=== PATIENT | female | born 1975 | race Caucasian/White ===

== ENCOUNTER → 2016-09-26 | Outpatient (CLI) | payer OTHER ==
--- NOTE | 2016-09-27 11:13 | MM ---
Reason for exam: screening (asymptomatic). Last mammogram was performed 1 year and 1 month ago. Physical Findings: A clinical breast exam by your physician is recommended on an annual basis and results should be correlated with mammographic findings. MG Screening Mammo w CAD Bilateral CC and MLO view(s) were taken. Prior study comparison: September 09, 2015, mammogram, performed at [facility]. August 25, 2014, mammogram, performed at [facility]. No significant changes when compared with prior studies. ASSESSMENT: Benign, BI-RAD 2 RECOMMENDATION: Routine screening mammogram of both breasts in 1 year.
== END | disposition home or self-care (01) ==
LOC: RADMAMWWP 13:56
PROVIDERS: ATTEND Family Medicine
DX: Z12.31 Encounter for screening mammogram for malignant neoplasm of breast (principal)

== ENCOUNTER → 2018-04-16 | Outpatient (CLI) | payer OTHER ==
--- NOTE | 2018-04-19 12:25 | MM ---
Reason for exam: screening (asymptomatic). Last mammogram was performed 1 year and 7 months ago. MG Screening Mammo w CAD Bilateral CC and MLO view(s) were taken. Prior study comparison: September 26, 2016, bilateral MG screening mammo w CAD. September 09, 2015, mammogram, performed at [facility]. The breast tissue is heterogeneously dense. This may lower the sensitivity of mammography. Punctate regional calcifications in both breast. Greater degree of subareolar fullness in the left breast. ASSESSMENT: Incomplete: need additional imaging evaluation, BI-RAD 0 RECOMMENDATION: Ultrasound of the left breast.
== END | disposition home or self-care (01) ==
LOC: RADMAMWWP 14:52
DX: Z12.31 Encounter for screening mammogram for malignant neoplasm of breast (principal)
CPT/HCPCS: 77067

== ENCOUNTER → 2018-05-01 | Outpatient (CLI) | payer OTHER ==
--- NOTE | 2018-05-05 12:17 | USB ---
Reason for exam: additional evaluation requested from abnormal screening. Physical Findings: Nurse did not find any significant physical abnormalities on exam. US Breast Workup Limited LT Left limited breast ultrasound including focal area of concern, retroareolar and axilla demonstrates a 2.0 x 1.6 x 0.7 cm oval well circumscribed cystic lesion at 2 o'clock, a 1.0 x 0.9 x 0.6 cm oval well circumscribed cystic lesion post nipple and a benign left axillary lymph node. The lesions at 2 and behind the nipple appear as fibrocystic changes. These results were verbally communicated with the patient and result sheet given to the patient on 05/01/18. ASSESSMENT: Benign, BI-RAD 2 RECOMMENDATION: Return to routine screening mammogram schedule for both breasts.
== END | disposition home or self-care (01) ==
LOC: RADUSWWP 07:45
PROVIDERS: ATTEND Family Medicine
DX: R92.8 Other abnormal and inconclusive findings on diagnostic imaging of breast (principal)

== ENCOUNTER 2022-03-12 01:47 | Emergency (ER) | payer OTHER ==
[2022-03-12 01:57] VITALS: TEMP 98.9
--- NOTE | 2022-03-12 02:24 | ED ---
URI HPI - General Chief Complaint: Upper Respiratory Infection Stated Complaint: JIMMY, chest pain Time Seen by Provider: 03/12/22 02:22 Source: patient, RN notes reviewed, old records reviewed Mode of arrival: ambulatory Limitations: no limitations - History of Present Illness Initial Comments: This is a 38-year-old female DF for evaluation patient Dese for evaluation regarding shortness of breath cough congestion fever. Not feeling well. No travel history no known specific sick contacts. Patient concern for coronavirus of flu. Maybe a little chest pain nothing significant difficulty taking a deep breath patient is a smoker, no significant shortness of breath MD Complaint: cough -: days(s) Severity: moderate Severity scale (1-10): 4 Consistency: constant Improves With: nothing Worsens With: nothing Associated Symptoms: fever, chills, myalgias, cough, chest pain, shortness of breath - Related Data Previous Rx's Medication Instructions Recorded Azithromycin [Zithromax] 500 mg PO DAILY #5 tab 03/12/22 predniSONE 50 mg PO DAILY #5 tab 03/12/22 Allergies Allergy/AdvReac Type Severity Reaction Status Date / Time acetaminophen [From Vicodin] Allergy Anaphylaxis Verified 03/12/22 01:58 aspirin Allergy Anaphylaxis Verified 03/12/22 01:58 diazepam [From Valium] Allergy Anaphylaxis Verified 03/12/22 01:58 hydrocodone [From Vicodin] Allergy Anaphylaxis Verified 03/12/22 01:58 ibuprofen [From Motrin] Allergy Anaphylaxis Verified 03/12/22 01:58 Review of Systems ROS Statement: Those systems with pertinent positive or pertinent negative responses have been documented in the HPI. ROS Other: All systems not noted in ROS Statement are negative. Past Medical History Past Medical History: No Reported History History of Any Multi-Drug Resistant Organisms: None Reported Past Surgical History: No Surgical Hx Reported Past Psychological History: No Psychological Hx Reported Smoking Status: Current every day smoker Past Alcohol Use History: Occasional Past Drug Use History: None Reported General Exam Limitations: no limitations General appearance: alert, in no apparent distress Head exam: Present: atraumatic, normocephalic, normal inspection Eye exam: Present: normal appearance, PERRL, EOMI. Absent: scleral icterus, conjunctival injection, periorbital swelling ENT exam: Present: normal exam, mucous membranes moist Neck exam: Present: normal inspection. Absent: tenderness, meningismus, lymphadenopathy Respiratory exam: Present: normal lung sounds bilaterally. Absent: respiratory distress, wheezes, rales, rhonchi, stridor Cardiovascular Exam: Present: normal rhythm, tachycardia, normal heart sounds. Absent: systolic murmur, diastolic murmur, rubs, gallop, clicks GI/Abdominal exam: Present: soft, normal bowel sounds. Absent: distended, tenderness, guarding, rebound, rigid Extremities exam: Present: normal inspection, full ROM, normal capillary refill. Absent: tenderness, pedal edema, joint swelling, calf tenderness Back exam: Present: normal inspection Neurological exam: Present: alert, oriented X3, CN II-XII intact Psychiatric exam: Present: normal affect, normal mood Skin exam: Present: warm, dry, intact, normal color. Absent: rash Course Vital Signs 03/12/22 01:55 Temperature 98.9 F Pulse Rate 105 H Respiratory 20 Rate Blood Pressure 149/77 O2 Sat by Pulse 95 Oximetry - Reevaluation(s) Reevaluation #1: 03/12/22 03:25 Medical record is reviewed Reevaluation #2: 03/12/22 03:25 Patient symptoms are improved Reevaluation #3: 03/12/22 03:25 Patient informed results and questions answered Medical Decision Making - Medical Decision Making 46 male cough congestion runny nose coming in for shortness of breath. Vital testing is negative x-rays negative patient can be discharged home - Lab Data Lab Results 03/12/22 Range/Units 01:59 Influenza Type A (PCR) Not Detected (Not Detectd) Influenza Type B (PCR) Not Detected (Not Detectd) RSV (PCR) Not Detected (Not Detectd) SARS-CoV-2 (PCR) Not Detected (Not Detectd) - Radiology Data Radiology results: report reviewed (Chest x-rays negative for acute disease), image reviewed Disposition Clinical Impression: Bronchitis, Acute upper respiratory infection, Viral infection, Fever Disposition: HOME SELF-CARE Condition: Good Instructions (If sedation given, give patient instructions): Upper Respiratory Infection (ED) Prescriptions: predniSONE 50 mg PO DAILY #5 tab Azithromycin [Zithromax] 500 mg PO DAILY #5 tab Is patient prescribed a controlled substance at d/c from ED?: No Referrals: None,Stated [REFERRING] - 1-2 days Time of Disposition: 03:30
--- NOTE | 2022-03-12 02:59 | XR ---
EXAMINATION TYPE: XR chest 1V portable DATE OF EXAM: 03/12/2022 COMPARISON: NONE HISTORY: Cough TECHNIQUE: FINDINGS: Single view Heart and mediastinum are normal. Lungs are clear. Diaphragm is normal. Bony thorax appears normal. IMPRESSION: Normal chest
[2022-03-12] MEDS ORDERED: DEXAMETHASONE SOD PHOSPHATE 10 MG/ML 1 ML VIAL IM STA (03:22)
[2022-03-12 04:14] VITALS: BP 129/67; PULSE 84; RESP 15
== END 2022-03-12 04:15 | disposition home or self-care (01) ==
LOC: EC 01:47
DX: J40 Bronchitis, not specified as acute or chronic (principal); J06.9 Acute upper respiratory infection, unspecified; B34.9 Viral infection, unspecified; F17.200 Nicotine dependence, unspecified, uncomplicated; Z88.6 Allergy status to analgesic agent; Z88.8 Allergy status to other drugs, medicaments and biological substances; Z88.5 Allergy status to narcotic agent; Z20.822 Contact with and (suspected) exposure to COVID-19
CPT/HCPCS: 87636; 71045; 99285; 96372; J1100

== ENCOUNTER 2023-03-28 13:16 | Emergency (ER) | payer OTHER ==
[2023-03-28 13:39] VITALS: BP 146/101; PULSE 88; RESP 20; TEMP 97.6
[2023-03-28] MEDS ORDERED: ACETAMINOPHEN TAB 325 MG TAB PO STA (14:17)
[2023-03-28] MEDS ORDERED: LIDOCAINE 4% PATCH TOPICAL ONE (14:17)
--- NOTE | 2023-03-28 15:06 | XR ---
EXAMINATION TYPE: XR lumbar spine 2 or 3V DATE OF EXAM: 03/28/2023 Comparison: None Clinical History: 47-year-old female pain Findings: 5 lumbar type vertebral bodies. Moderate degenerative disc disease L4-L5 and L5-S1. Facet arthropathy lower lumbar spine. Straightening of the normal lumbar lordosis with preserved alignment. Bilaterall y Essure devices. Impression: Moderate degenerative disc disease L4-L5 and L5-S1. Facet arthropathy lower lumbar spine. No vertebra l compression collapse or malalignment.
[2023-03-28] MEDS ORDERED: DEXAMETHASONE SOD PHOSPHATE 10 MG/ML 1 ML VIAL IM STA (15:20)
--- NOTE | 2023-03-28 16:44 | ED ---
Back Pain HPI - General Chief Complaint: Back Pain/Injury Stated Complaint: Back Pain Time Seen by Provider: 03/28/23 13:53 Source: patient, RN notes reviewed Limitations: no limitations - History of Present Illness Initial Comments: Patient is a 47-year-old female presented ER chief complaint back pain. Patient reports that she does have a pinched nerve in her back. Patient states she was getting dressed this morning and now is endorsing back pain. Patient states that her legs do feel somewhat tingly. Patient states is no changes to her. Patient denies any saddle paresthesias, bowel or bladder incontinence, fevers, IV drug use, inability to walk. - Related Data Previous Rx's Medication Instructions Recorded Azithromycin [Zithromax] 500 mg PO DAILY #5 tab 03/12/22 predniSONE 50 mg PO DAILY #5 tab 03/12/22 Cyclobenzaprine [Flexeril] 10 mg PO TID #15 tab 03/28/23 Lidocaine 5% Patch [Lidoderm 5% 1 each TP DAILY #10 patch 03/28/23 Patch] Allergies Allergy/AdvReac Type Severity Reaction Status Date / Time acetaminophen [From Vicodin] Allergy Anaphylaxis Verified 03/28/23 13:22 aspirin Allergy Anaphylaxis Verified 03/28/23 13:22 diazepam [From Valium] Allergy Anaphylaxis Verified 03/28/23 13:22 hydrocodone [From Vicodin] Allergy Anaphylaxis Verified 03/28/23 13:22 ibuprofen [From Motrin] Allergy Anaphylaxis Verified 03/28/23 13:22 Review of Systems ROS Statement: Those systems with pertinent positive or pertinent negative responses have been documented in the HPI. ROS Other: All systems not noted in ROS Statement are negative. Past Medical History Past Medical History: No Reported History History of Any Multi-Drug Resistant Organisms: None Reported Past Surgical History: Joint Replacement, Orthopedic Surgery Past Psychological History: No Psychological Hx Reported Smoking Status: Current every day smoker Past Alcohol Use History: Occasional Past Drug Use History: None Reported General Exam Limitations: no limitations General appearance: alert, in no apparent distress Head exam: Present: atraumatic, normocephalic, normal inspection Neck exam: Present: normal inspection. Absent: tenderness, meningismus, lymphadenopathy Respiratory exam: Present: normal lung sounds bilaterally. Absent: respiratory distress, wheezes, rales, rhonchi, stridor Cardiovascular Exam: Present: regular rate, normal rhythm, normal heart sounds. Absent: systolic murmur, diastolic murmur, rubs, gallop, clicks Back exam: Present: normal inspection, tenderness (Mid to lumbar spine), other (Sensation intact bilateral equal strength) Neurological exam: Present: alert, oriented X3, CN II-XII intact Psychiatric exam: Present: normal affect, normal mood Skin exam: Present: warm, dry, intact, normal color. Absent: rash Course Vital Signs 03/28/23 13:19 Temperature 97.6 F Pulse Rate 88 Respiratory 20 Rate Blood Pressure 146/101 O2 Sat by Pulse 99 Oximetry Medical Decision Making - Medical Decision Making Was pt. sent in by a medical professional or institution (, PA, AUTOMOTIVE PAINT TECHNICIAN, urgent care, hospital, or alf...) When possible be specific @ -No Did you speak to anyone other than the patient for history (EMS, parent, family, police, friend...)? What history was obtained from this source @ -No Did you review nursing and triage notes (agree or disagree)? Why? @ -I reviewed and agree with nursing and triage notes Were old charts reviewed (outside hosp., previous admission, EMS record, old EKG, old radiological studies, urgent care reports/EKG's, alf records)? Report findings @ -No old charts were reviewed Differential Diagnosis (chest pain, altered mental status, abdominal pain women, abdominal pain men, vaginal bleeding, weakness, fever, dyspnea, syncope, headache, dizziness, GI bleed, back pain, seizure, CVA, palpatations, mental health, musculoskeletal)? @ -Differential Back Pain: Strain, zoster, cauda equina syndrome, epidural abscess, vertebral osteomyelitis, discitis, fracture, subluxation, disc herniation, DJD, spinal stenosis, dissection, AAA, pancreatitis, peptic ulcer disease, pyelonephritis, kidney stone, this is not meant to be an all-inclusive list.a EKG interpreted by me (3pts min.). @ -None X-rays interpreted by me (1pt min.). @ -Lumbar spine x-ray shows moderate degenerative disc disease L4 -L5 and L5 - S1. Facet arthropathy lower lumbar spine. No vertebral compression collapse or malalignment. CT interpreted by me (1pt min.). @ -None done U/S interpreted by me (1pt. min.). @ -None done What testing was considered but not performed or refused? (CT, X-rays, U/S, labs)? Why? @ -None What meds were considered but not given or refused? Why? @ -None Did you discuss the management of the patient with other professionals (professionals i.e. , PA, AUTOMOTIVE PAINT TECHNICIAN, lab, RT, psych nurse, social science analyst, rn cardiology, teacher, space operations officer, nurse outreach case manager)? Give summary @ -No Was smoking cessation discussed for >3mins.? @ -No Was critical care preformed (if so, how long)? @ -No Were there social determinants of health that impacted care today? How? (Homelessness, low income, unemployed, alcoholism, drug addiction, transportation, low edu. Level, literacy, decrease access to med. care, [facility], rehab)? @ -No Was there de-escalation of care discussed even if they declined (Discuss DNR or withdrawal of care, Hospice)? DNR status @ -No What co-morbidities impacted this encounter? (DM, HTN, Smoking, COPD, CAD, Cancer, CVA, ARF, Chemo, Hep., AIDS, mental health diagnosis, sleep apnea, morbid obesity)? @ -None Was patient admitted / discharged? Hospital course, mention meds given and route, prescriptions, significant lab abnormalities, going to OR and other pertinent info. @ -Discharge. Patient is a 47-year-old female presented ER chief complaint back pain. Upon examination, patient's vital signs are stable. Physical exam was significant for mild mid to low back tenderness. No erythema, ecchymosis or rashes present. No red flag back pain symptoms. Lumbar spine x-ray shows moderate degenerative disc disease L4 through L5 and L5 and S1. Facet arthropathy lower lumbar spine. No vertebral compression collapse or malalignment. Patient did received by mouth Tylenol and Decadron IM for symptom control in the ER. A lidocaine patch was also placed. Patient states that her pain is mildly better. I discussed with patient imaging findings. I advised patient to follow-up with PCP if s ymptoms persist. Patient will be prescribed Flexeril and lidocaine patches at discharge. Return parameters were discussed. Patient will be discharged in stable condition with follow-up to PCP. Patient expressed understanding and agreement with care plan. Undiagnosed new problem with uncertain prognosis? @ -No Drug Therapy requiring intensive monitoring for toxicity (Heparin, Nitro, Insulin, Cardizem)? @ -No Were any procedures done? @ -No Diagnosis/symptom? @ -Back pain Acute, or Chronic, or Acute on Chronic? @ -Acute Uncomplicated (without systemic symptoms) or Complicated (systemic symptoms)? @ -Uncomplicated Side effects of treatment? @ -No Exacerbation, Progression, or Severe Exacerbation? @ -No Poses a threat to life or bodily function? How? (Chest pain, USA, MD, pneumonia, PE, COPD, DKA, ARF, appy, cholecystitis, CVA, Diverticulitis, Homicidal, Suicidal, threat to staff... and all critical care pts) @ -No - Radiology Data Radiology results: report reviewed, image reviewed Disposition Clinical Impression: Back pain Disposition: HOME SELF-CARE Condition: Stable Additional Instructions: Please return to the Emergency Department if symptoms worsen or any other concerns. Prescriptions: Cyclobenzaprine [Flexeril] 10 mg PO TID #15 tab Lidocaine 5% Patch [Lidoderm 5% Patch] 1 each TP DAILY #10 patch Is patient prescribed a controlled substance at d/c from ED?: No Referrals: [facility],Clinic [Primary Care Provider] - 1-2 days Time of Disposition: 16:44
== END 2023-03-28 17:07 | disposition home or self-care (01) ==
LOC: EC 13:16
DX: M54.50 Low back pain, unspecified (principal); F17.200 Nicotine dependence, unspecified, uncomplicated; Z88.5 Allergy status to narcotic agent; Z88.6 Allergy status to analgesic agent; Z88.8 Allergy status to other drugs, medicaments and biological substances
CPT/HCPCS: 72100; 99283; 96372; J1100